=== PATIENT | female | born 1980 | race Caucasian/White ===

== ENCOUNTER 2019-06-25 03:17 | Observation (INO) | payer OTHER ==
[2019-06-25] MEDS ORDERED: NALOXONE 0.4 MG/ML 1 ML VIAL IV STA ×2 (03:28→04:13)
--- NOTE | 2019-06-25 03:32 | ED ---
Overdose HPI - General Stated Complaint: overdose Time Seen by Provider: 06/25/19 03:27 - History of Present Illness Initial Comments: Dulce is a 39-year-old female brought to the ER today by EMS for evaluation of a possible overdose. EMS was called to a local bar where the patient was found to be sitting in the restroom on the toilet slumped over unresponsive. There was no drug paraphernalia around her. Patient was given intranasal Narcan with minimal improvement in her condition. - Related Data Allergies Allergy/AdvReac Type Severity Reaction Status Date / Time Unable to Assess Allergy Verified 06/25/19 03:32 Review of Systems ROS Statement: Those systems with pertinent positive or pertinent negative responses have been documented in the HPI. ROS Other: All systems not noted in ROS Statement are negative. General Exam - General Exam Comments Initial Comments: Physical Exam GENERAL: Patient is well-developed and well-nourished. Patient is nontoxic HENT: Normocephalic, Atraumatic. EYES: Pupils are 3 mm and reactive PULMONARY: Unlabored respirations. No audible rales rhonchi or wheezing was noted. CARDIOVASCULAR: There is a regular rate and rhythm without any murmurs gallops or rubs. ABDOMEN: Lower abdomen was distended, bedside ultrasound revealed a very full bladder SKIN: Skin is clear with no lesions or rashes and otherwise unremarkable. : Normal external genitalia NEUROLOGIC: GCS 9 Eyes - to pain Verbal - inappropriate words Motro - withdraws to pain Protecting airway, gag reflex intact MUSCULOSKELETAL: Normal extremities with adequate strength and full range of motion. No lower extremity swelling or edema. No calf tenderness. PSYCHIATRIC: Normal psychiatric evaluation. Course Vital Signs 06/25/19 06/25/19 06/25/19 03:27 03:36 04:22 Temperature 98.7 F Pulse Rate 72 Respiratory 18 14 15 Rate Blood Pressure 105/68 O2 Sat by Pulse 98 Oximetry 06/25/19 06/25/19 04:40 06:36 Temperature Pulse Rate 85 80 Respiratory 18 18 Rate Blood Pressure 99/60 103/55 O2 Sat by Pulse 97 96 Oximetry Medical Decision Making - Medical Decision Making Patient was seen and evaluated history is obtained from EMS This is a 39-year-old female who is acutely intoxicated, there is minimal improvement with intranasal Narcan, IV Narcan was given with again minimal improvement Patient's labs resulted with a critically high alcohol level greater than 400 Upon stimulation patient's becoming agitated screaming, decision was made to give small dose of Ativan for agitation Evening the patient significantly elevated alcohol level she will not be sober for greater than 15 hours and will be placed in observation unit with alcohol withdrawal protocol. Patient care was discussed with Dr. Gill who agrees with this plan. - Lab Data Result diagrams: 06/25/19 03:30 06/25/19 03:30 Lab Results 06/25/19 06/25/19 06/25/19 Range/Units 03:30 03:30 03:30 WBC 6.2 (3.8-10.6) k/uL RBC 4.66 (3.80-5.40) m/uL Hgb 14.1 (11.4-16.0) gm/dL Hct 43.1 (34.0-46.0) % MCV 92.5 (80.0-100.0) fL MCH 30.4 (25.0-35.0) pg MCHC 32.8 (31.0-37.0) g/dL RDW 12.3 (11.5-15.5) % Plt Count 300 (150-450) k/uL Neutrophils % 46 % Lymphocytes % 37 % Monocytes % 7 % Eosinophils % 6 % Basophils % 1 % Neutrophils # 2.9 (1.3-7.7) k/uL Lymphocytes # 2.3 (1.0-4.8) k/uL Monocytes # 0.4 (0-1.0) k/uL Eosinophils # 0.4 (0-0.7) k/uL Basophils # 0.1 (0-0.2) k/uL Sodium (137-145) mmol/L Potassium (3.5-5.1) mmol/L Chloride (98-107) mmol/L Carbon Dioxide (22-30) mmol/L Anion Gap mmol/L BUN (7-17) mg/dL Creatinine (0.52-1.04) mg/dL Est GFR (CKD-EPI)AfAm (>60 ml/min/1.73 sqM) Est GFR (CKD-EPI)NonAf (>60 ml/min/1.73 sqM) Glucose (74-99) mg/dL Calcium (8.4-10.2) mg/dL Total Bilirubin (0.2-1.3) mg/dL AST (14-36) U/L ALT (4-34) U/L Alkaline Phosphatase (38-126) U/L Total Protein (6.3-8.2) g/dL Albumin (3.5-5.0) g/dL Urine Color Colorless Urine Appearance Clear (Clear) Urine pH 5.5 (5.0-8.0) Ur Specific [place] 1.004 (1.001-1.035) Urine Protein Negative (Negative) Urine Glucose (UA) Negative (Negative) Urine Ketones Negative (Negative) Urine Blood Negative (Negative) Urine Nitrite Negative (Negative) Urine Bilirubin Negative (Negative) Urine Urobilinogen <2.0 (<2.0) mg/dL Ur Leukocyte Esterase Negative (Negative) Urine HCG, Qual Not Detected (Not Detectd) Salicylates mg/dL Urine Opiates Screen Not Detected (NotDetected) Ur Oxycodone Screen Not Detected (NotDetected) Urine Methadone Screen Not Detected (NotDetected) Ur Propoxyphene Screen Not Detected (NotDetected) Acetaminophen ug/mL Ur Barbiturates Screen Not Detected (NotDetected) U Tricyclic Antidepress Not Detected (NotDetected) Ur Phencyclidine Scrn Not Detected (NotDetected) Ur Amphetamines Screen Not Detected (NotDetected) U Methamphetamines Scrn Not Detected (NotDetected) U Benzodiazepines Scrn Not Detected (NotDetected) Urine Cocaine Screen Not Detected (NotDetected) U Marijuana (THC) Screen Detected H (NotDetected) Serum Alcohol mg/dL 06/25/19 Range/Units 03:30 WBC (3.8-10.6) k/uL RBC (3.80-5.40) m/uL Hgb (11.4-16.0) gm/dL Hct (34.0-46.0) % MCV (80.0-100.0) fL MCH (25.0-35.0) pg MCHC (31.0-37.0) g/dL RDW (11.5-15.5) % Plt Count (150-450) k/uL Neutrophils % % Lymphocytes % % Monocytes % % Eosinophils % % Basophils % % Neutrophils # (1.3-7.7) k/uL Lymphocytes # (1.0-4.8) k/uL Monocytes # (0-1.0) k/uL Eosinophils # (0-0.7) k/uL Basophils # (0-0.2) k/uL Sodium 144 (137-145) mmol/L Potassium 4.3 (3.5-5.1) mmol/L Chloride 109 H (98-107) mmol/L Carbon Dioxide 23 (22-30) mmol/L Anion Gap 12 mmol/L BUN 18 H (7-17) mg/dL Creatinine 0.90 (0.52-1.04) mg/dL Est GFR (CKD-EPI)AfAm >90 (>60 ml/min/1.73 sqM) Est GFR (CKD-EPI)NonAf 82 (>60 ml/min/1.73 sqM) Glucose 120 H (74-99) mg/dL Calcium 9.2 (8.4-10.2) mg/dL Total Bilirubin <0.1 L (0.2-1.3) mg/dL AST 40 H (14-36) U/L ALT 27 (4-34) U/L Alkaline Phosphatase 53 (38-126) U/L Total Protein 7.3 (6.3-8.2) g/dL Albumin 4.4 (3.5-5.0) g/dL Urine Color Urine Appearance (Clear) Urine pH (5.0-8.0) Ur Specific [place] (1.001-1.035) Urine Protein (Negative) Urine Glucose (UA) (Negative) Urine Ketones (Negative) Urine Blood (Negative) Urine Nitrite (Negative) Urine Bilirubin (Negative) Urine Urobilinogen (<2.0) mg/dL Ur Leukocyte Esterase (Negative) Urine HCG, Qual (Not Detectd) Salicylates <1.0 mg/dL Urine Opiates Screen (NotDetected) Ur Oxycodone Screen (NotDetected) Urine Methadone Screen (NotDetected) Ur Propoxyphene Screen (NotDetected) Acetaminophen <10.0 ug/mL Ur Barbiturates Screen (NotDetected) U Tricyclic Antidepress (NotDetected) Ur Phencyclidine Scrn (NotDetected) Ur Amphetamines Screen (NotDetected) U Methamphetamines Scrn (NotDetected) U Benzodiazepines Scrn (NotDetected) Urine Cocaine Screen (NotDetected) U Marijuana (THC) Screen (NotDetected) Serum Alcohol 402 H* mg/dL - EKG Data EKG Comments: EKG was obtained due to complaint of overdose EKG was obtained at 3:27 AM, rate is 74 rhythm is sinus there is a right bundle branch block, CA 142, here is 108, QTC [address] elevations or depressions no evidence for acute ischemia or infarction. Disposition Clinical Impression: Alcohol intoxication Disposition: ADMITTED IP TO THIS HOSP Condition: Serious
[2019-06-25] MEDS ORDERED: NALOXONE 0.4 MG/ML 10 ML VIAL ONE ×2 (03:36)
[2019-06-25 04:04] LABS: Appearance,Urine Clear (Clear); Bilirubin,Urine Negative (Negative); Blood,Urine Negative (Negative); Color,Urine Colorless; Glucose,Urine (UA) Negative (Negative); Ketones,Urine Negative (Negative); Leukocyte Esterase,Urine Negative (Negative); Nitrite,Urine Negative (Negative); PH, Urine 5.5 (5.0-8.0); Protein,Urine Negative (Negative); Specific Gravity,Urine 1.004 (1.001-1.035); Urobilinogen,Urine <2.0 mg/dL (<2.0)
[2019-06-25 04:06] LABS: Basophils # (A) 0.1 k/uL (0-0.2); Basophils % (A) 1 %; Eosinophils # (A) 0.4 k/uL (0-0.7); Eosinophils % (A) 6 %; HCT 43.1 % (34.0-46.0); HGB 14.1 gm/dL (11.4-16.0); Lymphocytes # (A) 2.3 k/uL (1.0-4.8); Lymphocytes % (A) 37 %; MCH 30.4 pg (25.0-35.0); MCHC 32.8 g/dL (31.0-37.0); MCV 92.5 fL (80.0-100.0); Mean Platelet Volume 7.3; Monocytes # (A) 0.4 k/uL (0-1.0); Monocytes % (A) 7 %; Neutrophils # (A) 2.9 k/uL (1.3-7.7); Neutrophils % (A) 46 %; Platelet Count 300 k/uL (150-450); RBC 4.66 m/uL (3.80-5.40); RDW 12.3 % (11.5-15.5); WBC 6.2 k/uL (3.8-10.6)
[2019-06-25 04:11] LABS: Carbon Dioxide 23 mmol/L (22-30); Chloride 109 mmol/L (98-107); Glucose 120 mg/dL (74-99); Potassium 4.3 mmol/L (3.5-5.1); Sodium 144 mmol/L (137-145)
[2019-06-25 04:12] LABS: ALT 27 U/L (4-34); AST 40 U/L (14-36); Acetaminophen <10.0 ug/mL; African American GFR (CKD) >90 (>60 ml/min/1.73 sqM); Albumin 4.4 g/dL (3.5-5.0); Alkaline Phosphatase 53 U/L (38-126); Anion Gap 12 mmol/L; Blood Urea Nitrogen 18 mg/dL (7-17); Calcium 9.2 mg/dL (8.4-10.2); Non-African American GFR(CKD) 82 (>60 ml/min/1.73 sqM); Salicylate <1.0 mg/dL; Total Bilirubin <0.1 mg/dL (0.2-1.3); Total Protein 7.3 g/dL (6.3-8.2)
[2019-06-25 04:16] LABS: Amphetamine Screen,Urine Not Detected (NotDetected); Barbiturate Screen,Urine Not Detected (NotDetected); Benzodiazepines Screen,Urine Not Detected (NotDetected); Cocaine Screen,Urine Not Detected (NotDetected); Methadone Screen, Urine Not Detected (NotDetected); Opiate Screen,Urine Not Detected (NotDetected); Oxycodone Screen, Urine Not Detected (NotDetected); Phencyclidine Screen,Urine Not Detected (NotDetected); Tricyclic Antidepressant,Urine Not Detected (NotDetected); Urn Cannabinoid Scrn Detected (NotDetected)
[2019-06-25 04:25] LABS: Alcohol 402 mg/dL
[2019-06-25] MEDS ORDERED: LORazepam 2 MG/ML INJ IV STA (05:28)
[2019-06-25] MEDS ORDERED: NALOXONE 0.4 MG/ML 1 ML VIAL IV PRN (05:30)
[2019-06-25] MEDS ORDERED: LORazepam 2 MG/ML INJ IV PRN ×3 (05:31)
[2019-06-25] MEDS ORDERED: THIAMINE 100 MG/ML 2 ML VIAL IM STA (05:31)
[2019-06-25 09:12] VITALS: BP 132/76; PULSE 111; RESP 16; TEMP 97.9
--- NOTE | 2019-06-25 17:03 | P.HPIM ---
History of Present Illness Patient left against medical advise even before we can evaluate the patient Past Medical History Past Medical History: No Reported History History of Any Multi-Drug Resistant Organisms: Unobtainable Past Surgical History: No Surgical Hx Reported Past Psychological History: Unable to Obtain Smoking Status: Unknown if ever smoked Past Alcohol Use History: Abuse Past Drug Use History: Unable to Obtain - Past Family History Mother Additional Family Medical History / Comment(s): Breast CA Sister(s) Additional Family Medical History / Comment(s): endometriosis Medications and Allergies Home Medications Medication Instructions Recorded Confirmed Type Ibuprofen [Motrin Ib] 200 - 800 mg PO Q8H PRN 06/25/19 06/25/19 History Allergies Allergy/AdvReac Type Severity Reaction Status Date / Time No Known Allergies Allergy Unverified 06/25/19 10:23 Physical Exam Vitals: Vital Signs Temp Pulse Pulse Resp BP BP Pulse Ox 06/25/19 08:00 97.9 F 111 H 16 132/76 97 06/25/19 06:36 80 18 103/55 96 06/25/19 04:40 85 18 99/60 97 06/25/19 04:22 15 06/25/19 03:36 14 06/25/19 03:27 98.7 F 72 18 105/68 98 Intake and Output 06/25/19 06/25/19 06/25/19 06:59 14:59 22:59 Other: Weight 58.967 kg Results CBC & Chem 7: 06/25/19 03:30 06/25/19 03:30 Labs: Abnormal Lab Results - Last 24 Hours (Table) 06/25/19 06/25/19 Range/Units 03:30 03:30 Chloride 109 H (98-107) mmol/L BUN 18 H (7-17) mg/dL Glucose 120 H (74-99) mg/dL Total Bilirubin <0.1 L (0.2-1.3) mg/dL AST 40 H (14-36) U/L U Marijuana (THC) Screen Detected H (NotDetected) Serum Alcohol 402 H* mg/dL Thrombosis Risk Factor Assmnt - Choose All That Apply Any of the Below Risk Factors Present?: No Other Risk Factors: No Other congenital or acquired thrombophilia - If yes, enter type in comment: No Thrombosis Risk Factor Assessment Level: Very Low Risk
--- NOTE | 2019-06-25 17:03 | P.DS ---
Providers Date of admission: 06/25/19 05:30 Attending physician: Librado Gill Primary care physician: Stated None Hospital Course: Patient left AGAINST MEDICAL ADVICE before we even get a chance to evaluate the patient Patient Condition at Discharge: Serious Plan - Discharge Summary Discharge Rx Participant: No New Discharge Prescriptions: No Action Ibuprofen [Motrin Ib] 200 - 800 mg PO Q8H PRN PRN Reason: Pain Discharge Medication List Ibuprofen [Motrin Ib] 200 - 800 mg PO Q8H PRN 06/25/19 [History] Follow up Appointment(s)/Referral(s): None,Stated [Primary Care Provider] - 1-2 days Discharge Disposition: Left Against Medical Advice
[2019-06-25] MEDS ORDERED: THIAMINE 100 MG TAB PO SCH (17:30)
== END 2019-06-25 12:53 | disposition left against medical advice (07) ==
LOC: EC 03:17 → OBSVTOIN 05:30 → INTOOBSV 05:30 → 6NMEDSUR 05:30 → UNDODISOB 12:53
PROVIDERS: ADMIT Internal Medicine; ATTEND Internal Medicine
DX: F10.129 Alcohol abuse with intoxication, unspecified (principal); I45.10 Unspecified right bundle-branch block; R45.1 Restlessness and agitation; Y90.8 Blood alcohol level of 240 mg/100 ml or more; Z80.3 Family history of malignant neoplasm of breast; Z84.2 Family history of other diseases of the genitourinary system
CPT/HCPCS: 96376; 96374; 96375; 99285; 36415; 93005; 80053; 85025; 81003; 81025; 80306; 83520; G0378; G0480 ×2; J2060; J2310; 80320; 80329

== ENCOUNTER 2021-06-17 17:20 | Inpatient (IN) | payer OTHER ==
[2021-06-17] MEDS ORDERED: TERBUTALINE 1 MG/ML VIAL SQ PRN (18:10)
[2021-06-17] MEDS ORDERED: LIDOCAINE 1% (PF) 10 MG/ML (30 ML SDV) SQ PRN (18:10)
[2021-06-17] MEDS ORDERED: OXYTOCIN 10 UNIT/ML 1 ML VIAL IM PRN (18:10)
[2021-06-17] MEDS ORDERED: METHYLERGONOVINE 0.2 MG/ML 1 ML AMP IM PRN (18:10)
[2021-06-17] MEDS ORDERED: CARBOPROST TROMETHAMINE 250 MCG/ML 1 ML AMP IM PRN (18:10)
[2021-06-17 18:15] LABS: Amphetamine Screen,Urine Not Detected (NotDetected); Barbiturate Screen,Urine Not Detected (NotDetected); Benzodiazepines Screen,Urine Not Detected (NotDetected); Cocaine Screen,Urine Not Detected (NotDetected); Methadone Screen, Urine Not Detected (NotDetected); Opiate Screen,Urine Not Detected (NotDetected); Oxycodone Screen, Urine Not Detected (NotDetected); Phencyclidine Screen,Urine Not Detected (NotDetected); Tricyclic Antidepressant,Urine Not Detected (NotDetected); Urn Cannabinoid Scrn Detected (NotDetected)
[2021-06-17 18:17] LABS: Glucose,Whole Blood 84 mg/dL (75-99)
[2021-06-17] MEDS: LACTATED RINGERS 1,000 ML IV SCH ×2 (18:30→18:48)
[2021-06-17 18:33] LABS: Basophils % (A) 0 %; Eosinophils # (A) 0.1 k/uL (0-0.7); Eosinophils % (A) 0 %; HCT 40.9 % (34.0-46.0); HGB 13.8 gm/dL (11.4-16.0); Lymphocytes # (A) 1.5 k/uL (1.0-4.8); Lymphocytes % (A) 9 %; MCH 31.3 pg (25.0-35.0); MCHC 33.7 g/dL (31.0-37.0); MCV 92.8 fL (80.0-100.0); Mean Platelet Volume 8.5; Monocytes # (A) 0.6 k/uL (0-1.0); Monocytes % (A) 4 %; Neutrophils # (A) 14.7 k/uL (1.3-7.7); Neutrophils % (A) 86 %; Platelet Count 332 k/uL (150-450); RBC 4.41 m/uL (3.80-5.40); RDW 13.6 % (11.5-15.5); WBC 17.1 k/uL (3.8-10.6)
[2021-06-17] MEDS ORDERED: ROPIVACAINE 100 MG, fentaNYL (PF). 200 MCG in SODIUM CHLORIDE 0.9% 76 ML EPIDURAL ONE (19:26)
--- NOTE | 2021-06-17 19:51 | P.HPOB ---
History of Present Illness H&P Date: 06/17/21 Chief Complaint: IUP @ 40 2/7 weeks, labor This is a 40-year-old 7 para 3033 at 40-2/7 weeks, estimated due date of 06/15/21, based on last menstrual period. Patient presents with complaints of regular painful contractions that began earlier this afternoon. Patient denies loss of fluid. Patient has noted good movement. Patient has been receiving care with Dr. Toussaint, late presentation at 34 weeks. Patient does have a history of Suboxone use in the , in addition she had a COVID-19 infection in March 2021, and asthma. She has a history of gestational diabetes with her prior pregnancies, and a GTT of 184, and has been diet controlled throughout this . On bloodwork this patient has a blood type of O+, rubella status immune, RPR nonreactive, hepatitis B surface antigen negative, HIV negative, hemoglobin A1c on 05/07 5.6, group beta strep culture negative on 05/17. Review of Systems Constitutional: Denies chills, Denies fatigue, Denies fever Ears, nose, mouth and throat: Denies headache Cardiovascular: Reports leg edema Respiratory: Denies dyspnea Gastrointestinal: Denies nausea, Denies vomiting Genitourinary: Reports Past Medical History Past Medical History: No Reported History History of Any Multi-Drug Resistant Organisms: None Reported Past Surgical History: Hernia Repair Additional Past Surgical History / Comment(s): hernia mesh 2009 Past Anesthesia/Blood Transfusion Reactions: No Reported Reaction Past Psychological History: Bipolar, Depression Smoking Status: Current every day smoker Past Alcohol Use History: Abuse Additional Drug Use History / Comment(s): 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 - Past Family History Mother Family Medical History: Thyroid Disorder Additional Family Medical History / Comment(s): Breast CA Sister(s) Additional Family Medical History / Comment(s): endometriosis Medications and Allergies Home Medications Medication Instructions Recorded Confirmed Type No Known Home Medications 06/17/21 06/17/21 History Allergies Allergy/AdvReac Type Severity Reaction Status Date / Time No Known Allergies Allergy Unverified 06/17/21 17:36 Exam Osteopathic Statement: *. No significant issues noted on an osteopathic s tructural exam other than those noted in the History and Physical/Consult. 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 Results Result Diagrams: 06/17/21 18:13 Abnormal Lab Results - Last 24 Hours (Table) 06/17/21 06/17/21 Range/Units 17:30 18:13 WBC 17.1 H (3.8-10.6) k/uL Neutrophils # 14.7 H (1.3-7.7) k/uL U Marijuana (THC) Screen Detected H (NotDetected) Assessment and Plan (1) Post-dates Current Visit: Yes Status: Acute Code(s): O48.0 - POST-TERM SNOMED Code(s): 49977297 (2) Active labor Current Visit: Yes Status: Acute Code(s): VBS9453 - SNOMED Code(s): 165580433 (3) GDM (gestational diabetes mellitus), class A1 Current Visit: Yes Status: Acute Code(s): O24.410 - GESTATIONAL DIABETES MELLITUS IN , DIET CONTROLLED SNOMED Code(s): 75727067 (4) complicated by Suboxone maintenance, antepartum Current Visit: Yes Status: Acute Code(s): O99.320 - DRUG USE COMPLICATING , UNSPECIFIED TRIMESTER; F11.20 - OPIOID DEPENDENCE, UNCOMPLICATED SNOMED Code(s): 70309609 (5) Late care Current Visit: Yes Status: Acute Code(s): O09.30 - SUPRVSN OF PREG W INSUFFICIENT ANTENAT CARE, UNSP TRIMESTER SNOMED Code(s): 150663524 Plan: 40-year-old 7 para 3033 at 40-3/7 weeks that presents to labor and delivery in active labor. Patient requesting epidural placement. Anesthesia has been notified. Amniotomy once epidural is placed. Anticipate spontaneous vaginal delivery.
[2021-06-17] MEDS ORDERED: ACETAMINOPHEN TAB 325 MG TAB PO PRN (19:54)
[2021-06-17] MEDS ORDERED: BENZOCAINE/MENTHOL SPRAY 1 GM/SPRAY AEROSOL TOPICAL PRN (19:54)
[2021-06-17] MEDS ORDERED: HYDROCORTISONE 2.5% RECTAL CREAM 30 GM TUBE RECTAL PRN (19:54)
[2021-06-17] MEDS ORDERED: diphenhydrAMINE 50 MG CAP PO PRN (19:54)
[2021-06-17] MEDS ORDERED: diphenhydrAMINE 50 MG/ML 1 ML VIAL IVP PRN ×2 (19:54)
[2021-06-17] MEDS ORDERED: SIMETHICONE 80 MG CHEWABLE PO PRN (19:54)
[2021-06-17] MEDS ORDERED: LANOLIN CREAM 5 GM TUBE TOPICAL PRN (19:54)
[2021-06-17] MEDS ORDERED: diphenhydrAMINE 25 MG CAP PO PRN (19:54)
[2021-06-17] MEDS ORDERED: ZOLPIDEM 5 MG TAB PO PRN (19:54)
--- NOTE | 2021-06-17 19:54 | P.PROBDLV ---
Vaginal Delivery Note - . Vaginal Delivery Note: This is a 40-year-old 7 para 3033 that presented to labor and delivery with complaints of regular painful contractions. Patient was noted to be 6 cm. Patient was admitted to labor and delivery in epidural was placed by the anesthesia department per patient request. Patient was comfortable at the epidural amniotomy was performed and copious clear fluid was obtained. Patient was noted to be 9 cm. Patient quickly progressed to complete pushed and precipitously had a normal spontaneous vaginal delivery of a viable female infant at 1938. A spontaneous cry was noted at . After two-minute delay the umbilical cord was doubly clamped and cut the placenta was delivered spontaneously intact with a three-vessel cord being noted. The vaginal vault was inspected and a labial laceration was appreciated but was hemostatic in nature therefore no repair was done. The uterus is noted to be firm and below the umbilicus after delivery. Estimated blood loss 100 mL. Patient and tolerated delivery well and are resting comfortably. All counts were noted be correct 2.
[2021-06-17] MEDS ORDERED: OXYTOCIN 30 UNITS/500 ML NS 30 UNIT in SALINE 1 500ML.BAG IV SCH (20:00)
[2021-06-17] MEDS: IBUPROFEN 600 MG TAB PO SCH (21:27)
[2021-06-17] MEDS: SENNOSIDES-DOCUSATE SODIUM 1 EACH TAB PO SCH (23:49)
[2021-06-18] MEDS: IBUPROFEN 600 MG TAB PO SCH ×3 (04:03→18:05)
[2021-06-18 08:02] VITALS: RESP 16
--- NOTE | 2021-06-18 09:02 | P.DS ---
Providers Date of admission: 06/17/21 17:50 Expected date of discharge: 06/18/21 Attending physician: Camacho Toussaint Primary care physician: Stated None - Discharge Diagnosis(es) (1) Normal spontaneous vaginal delivery Current Visit: Yes Status: Acute Hospital Course: The patient is a 40-year-old 7 para 3033 admitted at 40-2/7 weeks by average dating parameters. She presented in active labor with all signs reassuring. Her was,. By late presentation and a history of Suboxone use during the . She additionally had Covid during the and had a diagnosis of gestational diabetes as well. Her blood sugars were reportedly normal through and she had reassuring testing throughout. After presentation, she had an epidural catheter placed for analgesia and underwent artificial rupture of membranes for clear fluid. She progressed quickly to complete and then pushed to a normal spontaneous vaginal delivery of a viable 6 lbs. 10 oz. baby girl with Apgars of 8 at 1 minute and 9 at 5 minutes. Her course was unremarkable vital signs were stable and she was afebrile throughout. She was deemed stable for discharge on day #1 was discharged home to follow-up in the office in 6 weeks' time routinely. Discharge instructions included calling for any significantly increased bleeding or foul-smelling lochia, significantly increased fever or abdominal pain, perineal complaints, breast complaints, or anything else that concerned her. She was additionally instructed to have nothing in the vagina for at least 6 weeks time to include intercourse. She understood her instructions and agrees follow up as noted above. Discharge medications included continued vitamins as well as any home medications she was taking. Maternal blood type was O+ and rubella status was immune. Procedures: #1. Epidural analgesia #2. Artificial rupture of membranes #3. Normal spontaneous vaginal delivery Patient Condition at Discharge: Stable Plan - Discharge Summary New Discharge Prescriptions: No Action No Known Home Medications Discharge Medication List No Known Home Medications 06/17/21 [History] Follow up Appointment(s)/Referral(s): Camacho Toussaint MD [STAFF PHYSICIAN] - 6 Weeks Discharge Disposition: HOME SELF-CARE
[2021-06-18] MEDS: SENNOSIDES-DOCUSATE SODIUM 1 EACH TAB PO SCH (09:11)
[2021-06-18] MEDS: LACTATED RINGERS 1,000 ML IV SCH (15:27)
[2021-06-18 15:47] VITALS: BP 130/62; PULSE 57; TEMP 97.9
== END 2021-06-18 18:32 | disposition home or self-care (01) | DRG 807 ==
LOC: FBPOP 17:20 → 4FBP 17:50
PROVIDERS: ADMIT Obstetrics & Gynecology Obstetrics; ATTEND Obstetrics & Gynecology
PROC: 10E0XZZ Delivery of Products of Conception, External Approach (ICD-10-PCS; principal; 2021-06-17)
PROC: 10907ZC Drainage of Amniotic Fluid, Therapeutic from Products of Conception, Via Natural or Artificial Opening (ICD-10-PCS; 2021-06-17)
PROC: 4A0HXCZ Measurement of Products of Conception, Cardiac Rate, External Approach (ICD-10-PCS; 2021-06-17)
PROC: 0HQ9XZZ Repair Perineum Skin, External Approach (ICD-10-PCS; 2021-06-17)
DX: O24.429 Gestational diabetes mellitus in childbirth, unspecified control (principal); Z37.0 Single live birth; O48.0 Post-term pregnancy; O62.3 Precipitate labor; O70.0 First degree perineal laceration during delivery; F17.210 Nicotine dependence, cigarettes, uncomplicated; J45.909 Unspecified asthma, uncomplicated; F32.A Depression, unspecified; F31.9 Bipolar disorder, unspecified; O99.334 Smoking (tobacco) complicating childbirth; O99.344 Other mental disorders complicating childbirth; O99.52 Diseases of the respiratory system complicating childbirth; Z3A.40 40 weeks gestation of pregnancy; Z86.16 Personal history of COVID-19; Z87.19 Personal history of other diseases of the digestive system
CPT/HCPCS: 59025; 80306; 85025; 86850; 86900; 86901; 99213

== ENCOUNTER → 2023-07-02 | Outpatient (CLI) | payer OTHER ==
--- NOTE | 2023-07-02 15:02 | MM ---
Reason for Exam: Clinical finding. Last mammogram was performed 4 year(s) and 10 month(s) ago. Risk Values: Shannon 5 year model risk: 0.4%. NCI Lifetime model risk: 6.6%. Tissue Density: The breasts are extremely dense, which lowers the sensitivity of mammography. Findings: Analyzed By CAD. Asymmetry upper aspect in MLO view approximately 7.7 cm from the nipple measuring 3 mm possibly lymph node. No new suspicious masses, calcifications or distortions. Overall Assessment: Incomplete: need additional imaging evaluation, BI-RAD 0 Management: Diagnostic Breast Ultrasound of the right breast. Results were given to the patient verbally at the time of exam. Patient should continue monthly self-breast exams. A clinical breast exam by your physician is recommended on an annual basis. This exam should not preclude additional follow-up of suspicious palpable abnormalities. Note on Shannon scores and lifetime risk: 1. A Shannon score greater than 3% is considered moderate risk. If this is the case, consider specialist referral to assess eligibility for a risk reducing agent. 2. If overall lifetime risk for the development of breast cancer is 20% or higher, the patient may qualify for future screening with alternating mammogram and breast MRI. Electronically signed and approved by: Derek Lane DO
== END | disposition home or self-care (01) ==
LOC: RADMAMWWP 13:53
PROVIDERS: ATTEND Family Medicine
DX: R92.343 Mammographic extreme density, bilateral breasts (principal)
CPT/HCPCS: 77066; G0279; 77062

== ENCOUNTER → 2023-07-08 | Outpatient (CLI) | payer OTHER ==
--- NOTE | 2023-07-09 07:48 | USB ---
Reason for Exam: Additional evaluation requested from abnormal screening. Patient History: Menarche at age 15. First Full-Term at age 21. Hormonal Contraceptives for 2 years from age 39 until age 41. Mother had breast cancer, age 57. Mother tested for BRCA2 outcome was positive. Risk Values: Shannon 5 year model risk: 1.2%. NCI Lifetime model risk: 16.6%. Technique: Method: Targeted. Prior Study Comparison: 09/16/2011 Bilateral Screening Mammogram, Unknown. 09/01/2018 Bilateral Screening Mammogram, [facility]. 07/02/2023 Bilateral MG 3D diag mammo w/cad LYLY, [facility]. Findings: The upper section of the breast of the right breast, the axilla of the right breast and the retroareolar of the right breast were scanned. There appears to be some parenchymal tissue at the palpable region outer right breast 7 cm from the nipple 10:00 position. Real-time observation in real-time scanning was performed. A discrete persistent mass is not felt to be present. This was discussed with the patient in this area should change earlier diagnostic workup would BE recommended. In the absence of clinically suspicious findings, short-term follow-up in 6 months with mammogram and ultrasound is recommended. Additionally, there is a hypoechoic area along the chest wall which appears to elongate in the orthogonal view. Short-term follow-up of this area 5 cm from the nipple 12:00 position is recommended. Real-time observation scanning was performed. Patient was advised if there are any clinical changes to return earlier than 6 months. The patient understood and agreed. Overall Assessment: Probably benign, BI-RAD 3 Management: Diagnostic Mammogram of the right breast in 6 months. Diagnostic Breast Ultrasound of the right breast in 6 months. A clinical breast exam by your physician is recommended on an annual basis and results should be correlated with mammographic findings. This exam should not preclude additional follow-up of suspicious palpable abnormalities. Results were given to the patient verbally at the time of exam. Electronically signed and approved by: Gus Joaquin D.O. Radiologis
== END | disposition home or self-care (01) ==
LOC: RADUSWWP 15:11
PROVIDERS: ATTEND Family Medicine
DX: R92.8 Other abnormal and inconclusive findings on diagnostic imaging of breast (principal); Z80.3 Family history of malignant neoplasm of breast

== ENCOUNTER → 2023-09-05 | Outpatient (CLI) | payer OTHER ==
[2023-09-05 12:02] VITALS: BP 138/94; PULSE 82; RESP 17; TEMP 98.5
--- NOTE | 2023-09-05 12:23 | P.GSCN ---
History of Present Illness Consult date: 09/05/23 Reason for Consult: breast mass Requesting physician: Lee Albert History of present illness: Dulce is a 43 year old female seen in consultation for Dr. Albert regarding a mass in her right breast. She had a bilateral mammogram on 07-02-23 which showed dense breast and led to a right breast ultrasound on 07-08-23. This led to recommendation of a repeat right breast mammogram and ultrasound in 6 months. These were personally reviewed. She has been able to feel this area for about two months. She did not notice it until after her mammogram and ultrasound. It is not painful. It may have increased slightly in size. It does not change with her periods. She has not had any surgery on her breast. She has not had any recent trauma or infection in her breast. Her mother had breast cancer, patient not sure of the genetic test results. Shannon risk 5 years 1.2% NCI lifetime risk 16.6% Caffeine:at least 12 cups of coffee/day nicotine: 1 PPD/ for 4 years chocolate: occasional BCP: used for about 2 years hormones: none Family history: mother: breast cancer at 55, told BRCA2 (+) maternal grandfather: cancer ? type sister: cervical cancer Hormonal History: menarche: 15 [id number], breast fed: no, age at first : 20 periods regular; LMP: her last period about August 18 Surgical history: Hernia Medical history: Eating disorder/anorexia sleeping disorder Social History: nicotine: as above alcohol: none drugs: Marijuana daily for anxiety/ eating Review of Systems - Constitutional Reports sweats - EENT Eyes: denies blurred vision Ears: deny: decreased hearing, tinnitus Ears, nose, mouth and throat: Denies dysphagia - Breasts bilateral: as per HPI - Cardiovascular Denies chest pain, Denies shortness of breath - Respiratory Respiratory Comment(s): smoker Reports cough - Gastrointestinal Reports as per HPI, Reports nausea - Genitourinary Genitourinary: Denies dysuria, Denies hematuria Menstruation: Reports period normal - Musculoskeletal Reports as per HPI - Integumentary Reports as per HPI - Neurological Denies headaches, Denies syncope - Psychiatric Reports anxiety, Reports depression - Endocrine Reports fatigue, Reports weight change - Hematologic/Lymphatic Denies easy bleeding, Denies easy bruising - Allergic/Immunologic Reports seasonal allergies Past Medical History Past Medical History: No Reported History History of Any Multi-Drug Resistant Organisms: None Reported Past Surgical History: Hernia Repair Additional Past Surgical History / Comment(s): hernia mesh 2009 Past Anesthesia/Blood Transfusion Reactions: No Reported Reaction Past Psychological History: Bipolar, Depression Smoking Status: Current every day smoker Past Alcohol Use History: Abuse Additional Drug Use History / Comment(s): 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 - Past Family History Mother Family Medical History: Thyroid Disorder Additional Family Medical History / Comment(s): Breast CA Sister(s) Additional Family Medical History / Comment(s): endometriosis Medications and Allergies Home Medications Medication Instructions Recorded Confirmed Type No Known Home Medications 06/17/21 06/17/21 History Allergies Allergy/AdvReac Type Severity Reaction Status Date / Time No Known Allergies Allergy Unverified 06/17/21 17:36 Surgical - Exam - General moderate distress - Eyes normal ocular movement - Neck trachea midline - Cardiovascular Heart Sounds: normal: S1, S2 - Abdomen Abdomen: soft, non tender, no guarding, no rigid, no rebound - Integumentary normal turgor - Neurologic no disoriented, no combative - Musculoskeletal normal gait - Psychiatric oriented to time, oriented to person, oriented to place, speech is normal, memory intact Breast Exam:BRA: 32A Inspection: Bilateral grade 1/2 ptosis Palpation: Right breast: Extremely dense breast with increased nodularity in the lateral aspect of the breast, the breasts are small and very difficult to examine secondary to the ribs and the tissue interdigitating in the intercostal spaces Right axilla: No adenopathy of concern Left breast: Extremely dense breast, the breast again are small and very difficult to examine secondary to the ribs and the tissue interdigitating in the intercostal spaces Left axilla: No adenopathy of concern Results Bilateral mammogram from 07-02-2023 personally reviewed Right breast ultrasound 07-08-2023 personally reviewed Assessment and Plan Assessment: Impression: Very difficult to examine breast/very dense Nodularity through both breast with no discrete mass which would warrant interventional biopsy Abnormal right breast ultrasound recommending repeat right breast mammogram and ultrasound in 6 months Positive family history of breast cancer/question mother BRCA2 positive Plan: Obtain BRCA testing results and patient's mother Patient should have genetic testing performed if mother is BRCA2 positive Would consider chemoprophylaxis depending on BRCA2 testing I would like to obtain an MRI of the breast secondary to the denseness of both breast Patient to follow-up after genetic testing and MRI performed We have discussed that the caffeine and the nicotine could aggravate fibrocystic breast disease. I have recommended that she stop these and she is going to try to do lifestyle modification CC: Dr Albert
== END ==
LOC: WWCWWP 11:38
PROVIDERS: ATTEND Surgery
DX: R92.8 Other abnormal and inconclusive findings on diagnostic imaging of breast (principal); N63.20 Unspecified lump in the left breast, unspecified quadrant; N63.10 Unspecified lump in the right breast, unspecified quadrant; F17.210 Nicotine dependence, cigarettes, uncomplicated; Z80.3 Family history of malignant neoplasm of breast

== ENCOUNTER → 2023-10-21 | Outpatient (CLI) | payer OTHER ==
--- NOTE | 2023-10-23 08:47 | BMR ---
EXAM DATE: 10/21/2023 EXAM DESCRIPTION: MRI-Breast Bilat (W/WO Contrast) INDICATION: Palpable lumps right breast with abnormal mammogram and ultrasound. Family history of breast cancer in mother, paternal grandmother and paternal aunt COMPARISON: PRIOR MRIs: None available. Correlation to mammograms: 07/08/2023. Correlation to ultrasound: 07/08/2023 Reports were not available at time of dictation. CONTRAST: 4.5 cc Gadavist IV gadolinium contrast TECHNIQUE: Multiplanar multisequence MR imaging of both breasts was performed with a dedicated breast coil. Images were obtained before and after administration of IV gadolinium, using the standard breast mass protocol. Computer aided detection was utilized for interpretation. FINDINGS: LMP: 10/14/2023 General breast composition: The breast tissue is extremely dense Background parenchymal enhancement: Mild RIGHT BREAST: The T2 weighted series shows no areas of abnormal signal intensity. Review of the dynamic series shows no early or abnormal enhancement. LEFT BREAST: The T2 weighted series shows no areas of abnormal signal intensity. Review of the dynamic series shows no early or abnormal enhancement. LYMPH NODES: There is no evidence of internal mammary or axillary adenopathy. IMPRESSION: RIGHT BREAST: No MR evidence of malignancy. Review of outside ultrasound images demonstrates annotated hypoechoic areas at 12 o'clock, 5 cm from the nipple and 10 o'clock, 7 cm from the nipple without MRI correlate. Six-month follow-up right breast ultrasound versus ultrasound-guided biopsy is recommended. Correlation with previous reporting is recommended. LEFT BREAST: No MR evidence of malignancy. OVERALL ASSESSMENT -- BI-RADS 3: Probably Benign Short Interval Followup Recommended ANNUAL SCREENING BREAST MRI IN ADDITION TO MAMMOGRAPHY IS RECOMMENDED IN PATIENTS WITH LIFETIME RISK OF BREAST CANCER >20% MTDD
== END | disposition home or self-care (01) ==
LOC: RADMRIMAIN 21:30
PROVIDERS: ATTEND Surgery
DX: R68.89 Other general symptoms and signs (principal); Z80.3 Family history of malignant neoplasm of breast
CPT/HCPCS: C8908; A9585; 77049

== ENCOUNTER → 2024-01-23 | Outpatient (CLI) | payer OTHER ==
[2024-01-23 14:48] VITALS: BP 120/73; PULSE 78; RESP 16; TEMP 98.2
--- NOTE | 2024-01-23 15:14 | P.PN ---
Subjective Progress Note Date: 01/23/24 Principal diagnosis: high risk breast cancer 01-23-24 Reason for Consult: breast mass Requesting physician: Lee Albert History of present illness: Dulce is a 43 year old female seen in consultation for Dr. Albert initially on 09-05-23 regarding a mass in her right breast. She had a bilateral mammogram on 07-02-23 which showed dense breast and led to a right breast ultrasound on 07-08-23. This led to recommendation of a repeat right breast mammogram and ultrasound in 6 months. These were personally reviewed. She had been able to feel this area for about two months. She did not notice it until after her mammogram and ultrasound. It was not painful. It may have increased slightly in size at her last visit. It does not change with her periods. She has not had any surgery on her breast. She has not had any recent trauma or infection in her breast. Her mother had breast cancer, patient not sure of the genetic test results. Underwent a bilateral MRI of the breast on 10-21-2023. The findings were the following: Right breast: No MR evidence of malignancy, review of outside ultrasound images demonstrated hypoechoic areas at 12:00 5 cm from the nipple and 10:00 7 cm from the nipple without MRI correlate. 6-month follow-up right breast ultrasound versus ultrasound-guided core biopsy was recommended. Left breast no MR evidence of malignancy Overall assessment BI-RADS 3 probably benign short interval follow-up recommended Annual screening breast MRI in addition to mammography is recommended in patients with lifetime risk greater than 20%. MRI formed on 10-21-2023 as well as the ultrasound and mammogram performed on 07-02-2023 and 07-08-2023 were personally reviewed and discussed with Dr. Bowling from radiology. Radiographically it was felt that the area noted on ultrasound could be followed and a repeat ultrasound in 6 months would be reasonable. Since her last visit the area of nodularity in the right breast has increased in size, it is not painful. Also complains of new nodularity in the left lower breast. She has a history of an eating disorder and has lost weight since her last visit. She is uncertain of how much she has lost. Breast do not change around the time of her period, her periods are regular. weight 95 pounds today has lost 20 pounds in past several years Performed genetic testing from 10-19-2023 negative Shannon risk 5 years 1.2% NCI lifetime risk 16.6% Caffeine:was at least 12 cups of coffee/day; now decreased to 3 cups/day; one 20 oz Pepsi will last 1 week nicotine: 1 PPD/ for 4 years chocolate: occasional BCP: used for about 2 years hormones: none Family history: mother: breast cancer at 55, told BRCA2 (+) maternal grandfather: cancer ? type sister: cervical cancer Hormonal History: menarche: 15 [id number], breast fed: no, age at first : 20 periods regular; LMP: her last period two days ago; every 4 weeks Surgical history: Hernia Medical history: Eating disorder/anorexia sleeping disorder Social History: nicotine: as above alcohol: none drugs: Marijuana daily for anxiety/ eating Review of Systems - Constitutional Reports sweats - EENT Eyes: denies blurred vision Ears: deny: decreased hearing, tinnitus Ears, nose, mouth and throat: Denies dysphagia - Breasts bilateral: as per HPI - Cardiovascular Denies chest pain, Denies shortness of breath - Respiratory Respiratory Comment(s): smoker Reports cough - Gastrointestinal Reports as per HPI, Reports nausea - Genitourinary Genitourinary: Denies dysuria, Denies hematuria Menstruation: Reports period normal - Musculoskeletal Reports as per HPI - Integumentary Reports as per HPI - Neurological Denies headaches, Denies syncope - Psychiatric Reports anxiety, Reports depression - Endocrine Reports fatigue, Reports weight change - Hematologic/Lymphatic Denies easy bleeding, Denies easy bruising - Allergic/Immunologic Reports seasonal allergies Past Medical History Past Medical History: No Reported History History of Any Multi-Drug Resistant Organisms: None Reported Past Surgical History: Hernia Repair Additional Past Surgical History / Comment(s): hernia mesh 2009 Past Anesthesia/Blood Transfusion Reactions: No Reported Reaction Past Psychological History: Bipolar, Depression Smoking Status: Current every day smoker Past Alcohol Use History: Abuse Additional Drug Use History / Comment(s): 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 - Past Family History Mother Family Medical History: Thyroid Disorder Additional Family Medical History / Comment(s): Breast CA Sister(s) Additional Family Medical History / Comment(s): endometriosis Medications and Allergies Home Medications Medication Instructions Recorded Confirmed Type No Known Home Medications 06/17/21 06/17/21 History Allergies Allergy/AdvReac Type Severity Reaction Status Date / Time No Known Allergies Allergy Unverified 06/17/21 17:36 Objective - Vital Signs Vital signs: Vital Signs Temp 98.2 F 01/23/24 14:45 Pulse 78 01/23/24 14:45 Resp 16 01/23/24 14:45 BP 120/73 01/23/24 14:45 Pulse Ox 98 01/23/24 14:45 FiO2 Intake & Output 01/22/24 01/23/24 01/23/24 18:59 06:59 18:59 Weight 45.359 kg - Constitutional General appearance: Present: cooperative, thin - EENT Eyes: Present: EOMI ENT: Present: hearing grossly normal - Neck Neck: Present: normal ROM - Respiratory Respiratory: bilateral: CTA - Cardiovascular Rhythm: regular Heart sounds: normal: S1, S2 - Integumentary Integumentary: Present: normal turgor - Musculoskeletal Musculoskeletal: Present: gait normal - Psychiatric Psychiatric: Present: A&O x's 3, appropriate affect, intact judgment & insight - Additional findings Additional findings: Breast Exam:BRA: 32A Inspection: Bilateral grade 1/2 ptosis Palpation: Right breast: Extremely dense breast with increased nodularity in the lateral aspect of the breast, the breasts are small and very difficult to examine secondary to the ribs and the tissue interdigitating in the intercostal spaces Right axilla: No adenopathy of concern Left breast: Extremely dense breast, the breast again are small and very difficult to examine secondary to the ribs and the tissue interdigitating in the intercostal spaces Left axilla: No adenopathy of concern Assessment and Plan Assessment: Impression: Very difficult to examine breast/very dense Nodularity through both breast with no discrete mass which would warrant interventional biopsy Breast MRI from 10-21-2023 reviewed and interpreted with radiology comparing to mammogram and ultrasound of June 2023. Recommendation after review is for repeat right breast ultrasound in 6 months. I have discussed this with the patient and we are going to repeat an ultrasound of the right breast at this time. Positive family history of breast cancer/question mother BRCA2 positive Performed on October 19, 2023 negative patient complaining Increased nodularity in the right breast and a new nodule in the left breast Plan: Fact that the patient can still feel nodularity in the right breast which she believes has increased and feels a new lump in the left breast we will do bilateral breast ultrasound. Patient to follow-up after breast ultrasound. We have discussed that the caffeine and the nicotine could aggravate fibrocystic breast disease. I have recommended that she stop these and she is going to try to do lifestyle modification CC: Dr Ablert
== END ==
LOC: WWCWWP 14:05
PROVIDERS: ATTEND Surgery

== ENCOUNTER → 2024-04-27 | Outpatient (CLI) | payer OTHER ==
--- NOTE | 2024-04-27 15:26 | USB ---
Reason for Exam: Follow-up at short interval from prior study. Patient History: Menarche at age 15. First Full-Term at age 21. Hormonal Contraceptives for 2 years from age 39 until age 41. Mother had breast cancer, age 57. Mother tested for BRCA2 outcome was positive. Risk Values: Shannon 5 year model risk: 1.2%. NCI Lifetime model risk: 16.6%. Technique: Method: Targeted. Doppler: Color. Patient Position: Supine. Prior Study Comparison: 09/16/2011 Bilateral Screening Mammogram, Unknown. 09/01/2018 Bilateral Screening Mammogram, [facility]. 07/02/2023 Bilateral MG 3D diag mammo w/cad LYLY, [facility]. Findings: Targeted ultrasound right breast and left breast shows dense tissue bilaterally. Small stable nonspecific hypoechoic area 10:00 position right breast measuring 8 x 5 mm May blend with other tissue. Benign-appearing subcentimeter axillary lymph nodes are present on images. Overall Assessment: Benign, BI-RAD 2 Management: Screening Mammogram of both breasts in 3 months. No ultrasound evidence for malignancy. Return to routine follow-up. A clinical breast exam by your physician is recommended on an annual basis and results should be correlated with mammographic findings. This exam should not preclude additional follow-up of suspicious palpable abnormalities. Results were given to the patient verbally at the time of exam. [facility], , 04/27/2024 3:23 PM. Electronically signed and approved by: Danial Gray M.D.
== END | disposition home or self-care (01) ==
LOC: RADUSWWP 14:37
PROVIDERS: ATTEND Surgery
DX: N63.0 Unspecified lump in unspecified breast (principal); Z80.3 Family history of malignant neoplasm of breast

== ENCOUNTER → 2024-05-28 | Outpatient (CLI) | payer OTHER ==
--- NOTE | 2024-06-29 11:19 | EM ---
EVENT MONITOR STUDY PERFORMED: 30-day event monitor. All available rhythm strips were reviewed. The patient has sinus rhythm almost throughout the recordings. Sometimes, there is sinus tachycardia with IVCD. There were several episodes when the patient complained of a racing heart. She was in a sinus rhythm and the heart rate ranged from 69 to 93 beats per minute. No correlation with any significant arrhythmia. No significant bradycardia. FINAL IMPRESSION: Unremarkable 30-day event monitor with sinus rhythm and IVCD and sinus tachycardia. No correlation of any significant arrhythmia with patient's perception of racing heart rate. MMODL / IJN: [id number] /
== END | disposition home or self-care (01) ==
LOC: RADECHMAIN 08:15
PROVIDERS: ATTEND Family Medicine
DX: R00.2 Palpitations (principal); R00.0 Tachycardia, unspecified
CPT/HCPCS: 93270